=== PATIENT | female | born 1965 | race Caucasian/White ===

== ENCOUNTER 2017-06-19 06:40 | Day surgery (SDC) | payer BC ==
[2017-06-19] MEDS ORDERED: Lactated Ringers 1,000 ML IV SCH (06:45)
[2017-06-19] MEDS ORDERED: Propofol 200 MG/20 ML SDV IV ONE (08:49)
[2017-06-19] MEDS ORDERED: Midazolam 1 MG/ML 2 ML SDV IV ONE (08:49)
[2017-06-19] MEDS ORDERED: Lidocaine 2% 100 MG/5 ML Syringe IVPUSH ONE (08:49)
--- NOTE | 2017-06-19 09:46 | PCM.HPR ---
H & P Addendum review - H & P Addendum Review Date of Original H & P: 06/09/17 Date Reviewed: 06/19/17 Time Reviewed: 08:40 Patient was Examined: No Changes
--- NOTE | 2017-06-19 09:48 | PCM.OPNOTE ---
- General Post-Op/Procedure Note Date of Surgery/Procedure: 06/19/17 Operative Procedure(s): Colonoscopy with polypectomy Findings: Sig Diverticulosis and Diverticulitis colon Polyps Pre Op Diagnosis: FH colon Ca. LLQ Pain Post-Op Diagnosis: Same Anesthesia Technique: MAC Primary Surgeon: Moody Raza Pathology: Colon Polyps EBL in mLs: 0 Complications: None Condition: Good
--- NOTE | 2017-06-19 10:46 | OR ---
DATE OF OPERATION: 06/19/2017 SURGEON: Moody Raza MD PREOPERATIVE DIAGNOSES: 1. Family history of colon cancer. 2. Recent left lower quadrant abdominal pain. POSTOPERATIVE DIAGNOSES: 1. Colon polyps. 2. Sigmoid diverticulosis and diverticulitis. ANESTHESIA: IV sedation. DESCRIPTION OF PROCEDURE: The patient was brought to the procedure room, where she was placed on her left side and IV sedation administered. Digital rectal exam was performed, which was normal. The colonoscope was inserted and advanced to the level of the cecum with some difficulty getting through a tortuous colon. By turning her to the supine position, I was able to clearly identify the internal markings and see the ileocecal valve and appendiceal orifice. Prep was good and surfaces were well visualized. Upon withdrawing the scope, the ascending and transverse colon were normal. At 80 cm in the descending colon, there was broad based polyp on a fold. That was removed with the cautery snare and retrieved in the polyp trap. The sigmoid colon had a sessile polyp at 25 cm that was removed with the cautery snare and the specimen was destroyed with cautery, and no specimen was retrieved. Lastly, there were two small adjacent hyperplastic polyps located 15 cm from the anal verge each measuring 6 mm in diameter that were removed with the cautery snare and retrieved. The sigmoid colon has multiple diverticula present. In the distal sigmoid colon, there was erythema with some thickening of the folds, but I did not see any purulent drainage. These are consistent with diverticulitis. Rectum was normal and retroflexion was normal. Air was removed and the scope withdrawn. The patient tolerated the procedure well and returned to recovery in stable condition. The patient will be contacted with the pathology report when it returns. If polyps are adenomatous, she should undergo repeat colonoscopy in three years. If polyps are hyperplastic, she can wait 5 years until her next colon screening. /[id number] MOISES/NEIL
[2017-06-19 11:16] VITALS: BP 145/74
== END 2017-06-19 11:05 | disposition home or self-care (01) ==
LOC: FB.SDS 06:40
PROVIDERS: ATTEND Surgery
PROC: 0DBM8ZX Excision of Descending Colon, Via Natural or Artificial Opening Endoscopic, Diagnostic (ICD-10-PCS; principal; 2017-06-19)
PROC: 0DBN8ZX Excision of Sigmoid Colon, Via Natural or Artificial Opening Endoscopic, Diagnostic (ICD-10-PCS; 2017-06-19)
DX: R10.84 Generalized abdominal pain (principal); R10.32 Left lower quadrant pain; B37.9 Candidiasis, unspecified; Z80.0 Family history of malignant neoplasm of digestive organs; K63.5 Polyp of colon; K57.30 Diverticulosis of large intestine without perforation or abscess without bleeding
CPT/HCPCS: 45385; 88305; J2250; J2704; J7120